=== PATIENT | female | born 1955 | race Caucasian/White ===

== ENCOUNTER 2017-09-21 07:46 | Day surgery (SDC) | payer BC ==
[~2017-09-21 07:46] MED LIST: Lactated Ringers 1,000 ML IV SCH; Sodium Chloride 0.9% 10 ML Syringe FLUSH PRN
[2017-09-21] MEDS ORDERED: Propofol 200 MG/20 ML SDV IV ONE (09:00)
[2017-09-21] MEDS ORDERED: Midazolam 1 MG/ML 2 ML SDV IV ONE (09:00)
--- NOTE | 2017-09-21 09:31 | PCM.OPNOTE ---
- General Post-Op/Procedure Note Date of Surgery/Procedure: 09/21/17 Operative Procedure(s): c scope Findings: normal exam Pre Op Diagnosis: screening Post-Op Diagnosis: normal exam Anesthesia Technique: MAC Primary Surgeon: Logan Ramirez Anesthesia Provider: Alonso Cerrato Pathology: none Complications: None Condition: Good Free Text/Narrative:: see dictation #[id number]
--- NOTE | 2017-09-21 18:15 | OR ---
DATE OF OPERATION: 09/21/2017 SURGEON: Logan Ramirez MD PROCEDURE PERFORMED: Colonoscopy. PREOPERATIVE DIAGNOSIS: Need for screening C scope. POSTOPERATIVE DIAGNOSIS: Normal exam. INDICATIONS FOR PROCEDURE: This is a 62-year-old white female, who presents for screening colonoscopy. She was offered and accepted same. DESCRIPTION OF OPERATION: After an excellent IV sedation was administered, digital rectal exam was performed. No marked abnormality was noted. Flexible colonoscope was inserted and advanced without difficulty to the cecum. The prep was excellent. The following findings were noted. Ascending colon, unremarkable. Transverse colon, unremarkable. Descending colon, unremarkable. Sigmoid and rectum unremarkable. Colon was deflated. Scope was removed. The patient tolerated the procedure well, and was taken to recovery room in good condition. /[id number] KATHIA/JAYY
== END 2017-09-21 10:40 | disposition home or self-care (01) ==
LOC: FB.SDS 07:46
PROVIDERS: ATTEND Surgery
DX: Z12.11 Encounter for screening for malignant neoplasm of colon (principal); I10 Essential (primary) hypertension; L82.1 Other seborrheic keratosis; H33.21 Serous retinal detachment, right eye; H52.10 Myopia, unspecified eye; H52.209 Unspecified astigmatism, unspecified eye; H52.4 Presbyopia; Z79.899 Other long term (current) drug therapy; Z98.890 Other specified postprocedural states
CPT/HCPCS: 45378; J2250; J2704; J7120